=== PATIENT | male | born 1940 | race Caucasian/White ===

== ENCOUNTER → 2016-08-30 | Outpatient (CLI) | payer OTHER | LOC: BHFA 09:00 | PROVIDERS: ATTEND Internal Medicine Cardiovascular Disease | DX: I25.10 Atherosclerotic heart disease of native coronary artery without angina pectoris (principal); E78.5 Hyperlipidemia, unspecified; I10 Essential (primary) hypertension ==

== ENCOUNTER → 2018-03-20 | Outpatient (CLI) | payer OTHER | LOC: CIMAGING 14:15 | PROVIDERS: ATTEND Family Medicine | DX: M19.012 Primary osteoarthritis, left shoulder (principal); M17.0 Bilateral primary osteoarthritis of knee | CPT/HCPCS: 73030-PO; 73562-PO ==

== ENCOUNTER → 2018-05-10 | Outpatient (CLI) | payer OTHER | PROVIDERS: ATTEND Family Medicine | DX: R13.13 Dysphagia, pharyngeal phase (principal) | CPT/HCPCS: 74230; 92611; G8996; G8997; G8998 ==